=== PATIENT | male | born 1995 | race African-American/Black ===

== ENCOUNTER 2021-04-26 14:50 | Inpatient (IN) | payer MEDICAID ==
[~2021-04-26] VITALS: Ht 190.5 cm; Wt 77.1 kg
[2021-04-26 19:57] VITALS: BP 117/73
[2021-04-27] MEDS ORDERED: INFLUENZA VIRUS VACCINE QVS 2021-22 (6MO+)/PF 60 MCG/0.5 ML SYRINGE IM. ONE (00:45)
[2021-04-27 06:07] VITALS: BP 120/78
[2021-04-27 08:24] VITALS: BP 111/61
[2021-04-27] MEDS ORDERED: HALOPERIDOL LACTATE 5 MG/ML VIAL ONE (09:11)
[2021-04-27] MEDS ORDERED: DiphenhydrAMINE HCL 50 MG/ML VIAL ONE (09:11)
[2021-04-27] MEDS ORDERED: LORazepam 2 MG/ML VIAL IM ONE (09:15)
[2021-04-27] MEDS ORDERED: HALOPERIDOL LACTATE 5 MG/ML VIAL IM ONE (09:15)
[2021-04-27] MEDS ORDERED: DiphenhydrAMINE HCL 50 MG/ML VIAL IM ONE (09:15)
[2021-04-27] MEDS: LORazepam 1 MG TABLET PO PRN (18:08)
[2021-04-27] MEDS: HALOPERIDOL 5 MG TABLET PO PRN (18:08)
[2021-04-27] MEDS ORDERED: DOCUSATE SODIUM 100 MG CAPSULE PO PRN (22:00)
[2021-04-27] MEDS ORDERED: ALBUTEROL SULFATE HFA 90 MCG/PUFF 8 GM INHALER IH PRN (22:00)
[2021-04-27] MEDS ORDERED: PETROLATUM,WHITE 28 GM JELLY TP PRN (22:00)
[2021-04-27] MEDS ORDERED: IBUPROFEN 600 MG TABLET PO PRN (22:00)
[2021-04-27] MEDS ORDERED: OMEPRAZOLE 20 MG CAPSULE PO PRN (22:00)
[2021-04-27] MEDS ORDERED: MAG HYDROX/AL HYDROX/SIMETH ES 30 ML SUSPENSION UDCUP PO PRN (22:00)
[2021-04-27] MEDS ORDERED: MAGNESIUM HYDROXIDE SUSPENSION 30 ML UDCUP PO PRN (22:00)
[2021-04-27] MEDS ORDERED: BENZOCAINE/MENTHOL LOZENGE PO PRN (22:00)
[2021-04-27] MEDS ORDERED: ACETAMINOPHEN 325 MG TABLET PO PRN (22:00)
[2021-04-27] MEDS ORDERED: LOPERAMIDE HCL 2 MG CAPSULE PO PRN (22:00)
[2021-04-27] MEDS ORDERED: BACITRACIN 28 GM OINTMENT TP PRN (22:00)
[2021-04-27] MEDS ORDERED: CloNIDine HCL 0.1 MG TABLET PO PRN (22:00)
[2021-04-27] MEDS ORDERED: ONDANSETRON HCL 4 MG TABLET PO PRN (22:00)
[2021-04-28 07:12] VITALS: BP 109/63
[2021-04-28 08:04] LABS: BASOPHILS % (AUTO) 0.3 % (0.0-2.0); EOSINOPHILS % (AUTO) 0 % (1.0-6.0); HEMATOCRIT 43.7 % (41-53); HEMOGLOBIN 15.1 g/dL (13.5-17.5); LYMPHOCYTES # (AUTO) 1.6 K/uL (1.0-4.8); LYMPHOCYTES % (AUTO) 16.6 % (22.0-44.0); MEAN CORPUSCULAR HEMOGLOBIN 31.3 pg (26.0-34.0); MEAN CORPUSCULAR HGB CONC 34.6 G/dL (31.0-37.0); MEAN CORPUSCULAR VOLUME 90 fL (80-100); MONOCYTES # (AUTO) 0.7 K/uL (0.1-1.0); MONOCYTES % (AUTO) 6.6 % (2.0-9.0); NEUTROPHILS # (AUTO) 7.5 K/uL (1.8-7.7); NEUTROPHILS % (AUTO) 76.5 % (40.0-70.0); PLATELET COUNT (AUTO) 251 K/uL (150-450); RED BLOOD CELL COUNT(AUTO) 4.83 MIL/uL (4.50-5.90); RED CELL DISTRIBUTION WIDTH 13.3 % (11.5-14.5)
[2021-04-28 08:34] VITALS: BP 111/59
[2021-04-28] MEDS ORDERED: DiphenhydrAMINE HCL 50 MG/ML VIAL IM ONE ×2 (10:45→13:45)
[2021-04-28] MEDS ORDERED: LORazepam 2 MG/ML VIAL ONE (13:39)
[2021-04-28] MEDS ORDERED: HALOPERIDOL LACTATE 5 MG/ML VIAL ONE (13:40)
[2021-04-28] MEDS ORDERED: LORazepam 2 MG/ML VIAL IM ONE (13:45)
[2021-04-28] MEDS ORDERED: HALOPERIDOL LACTATE 5 MG/ML VIAL IM ONE (13:45)
[2021-04-28 16:30] VITALS: BP 112/62
[2021-04-28] MEDS: OLANZapine 7.5 MG TABLET PO SCH (20:35)
[2021-04-28] MEDS: ZOLPIDEM TARTRATE 10 MG TABLET PO PRN (20:35)
[2021-04-28] MEDS: LORazepam 1 MG TABLET PO PRN (20:35)
[2021-04-29 00:43] VITALS: BP 120/75
[2021-04-29] MEDS ORDERED: DiphenhydrAMINE HCL 50 MG/ML VIAL ONE (13:33)
[2021-04-29] MEDS ORDERED: LORazepam 2 MG/ML VIAL ONE (13:33)
[2021-04-29] MEDS ORDERED: HALOPERIDOL LACTATE 5 MG/ML VIAL ONE (13:34)
[2021-04-29] MEDS ORDERED: LORazepam 2 MG/ML VIAL IM ONE (13:35)
[2021-04-29] MEDS ORDERED: DiphenhydrAMINE HCL 50 MG/ML VIAL IM ONE (13:35)
[2021-04-29] MEDS ORDERED: HALOPERIDOL LACTATE 5 MG/ML VIAL IM ONE (13:35)
[2021-04-29] MEDS: HALOPERIDOL 5 MG TABLET PO PRN (16:10)
[2021-04-29] MEDS: LORazepam 1 MG TABLET PO PRN (16:10)
[2021-04-29 16:33] VITALS: BP 96/58
[2021-04-29 17:12] VITALS: BP 122/75
[2021-04-29] MEDS: OLANZapine 7.5 MG TABLET PO SCH (20:16)
[2021-04-30 06:08] VITALS: BP 115/74
[2021-04-30 16:11] VITALS: BP 113/70
[2021-04-30] MEDS: OLANZapine 7.5 MG TABLET PO SCH (20:15)
[2021-04-30] MEDS: LORazepam 1 MG TABLET PO PRN (20:15)
[2021-04-30] MEDS: ZOLPIDEM TARTRATE 10 MG TABLET PO PRN (20:15)
[2021-05-01 05:44] VITALS: BP 110/67
[2021-05-01] MEDS ORDERED: DiphenhydrAMINE HCL 50 MG/ML VIAL ONE (16:33)
[2021-05-01] MEDS ORDERED: HALOPERIDOL LACTATE 5 MG/ML VIAL ONE (16:33)
[2021-05-01] MEDS ORDERED: LORazepam 2 MG/ML VIAL ONE (16:33)
[2021-05-01] MEDS ORDERED: HALOPERIDOL LACTATE 5 MG/ML VIAL IM ONE (16:35)
[2021-05-01] MEDS ORDERED: DiphenhydrAMINE HCL 50 MG/ML VIAL IM ONE (16:35)
[2021-05-01] MEDS ORDERED: LORazepam 2 MG/ML VIAL IM ONE (16:35)
[2021-05-01] MEDS: OLANZapine 7.5 MG TABLET PO SCH (21:00)
[2021-05-02 01:13] VITALS: BP 108/77
[2021-05-02 12:01] LABS: GLUCOMETER DEV NAME(LOC) POC.BV
[2021-05-02 16:15] VITALS: BP 114/75
[2021-05-02] MEDS: HALOPERIDOL 5 MG TABLET PO PRN (17:31)
[2021-05-02] MEDS: LORazepam 1 MG TABLET PO PRN (17:31)
[2021-05-02] MEDS: ZOLPIDEM TARTRATE 10 MG TABLET PO PRN (20:32)
[2021-05-02] MEDS: OLANZapine 7.5 MG TABLET PO SCH (20:33)
[2021-05-03 08:29] VITALS: BP 145/79
[2021-05-03] MEDS ORDERED: LORazepam 2 MG/ML VIAL ONE (12:51)
[2021-05-03] MEDS ORDERED: HALOPERIDOL LACTATE 5 MG/ML VIAL ONE (12:51)
[2021-05-03] MEDS ORDERED: DiphenhydrAMINE HCL 50 MG/ML VIAL ONE (12:52)
[2021-05-03] MEDS ORDERED: HALOPERIDOL LACTATE 5 MG/ML VIAL IM ONE (13:15)
[2021-05-03] MEDS ORDERED: DiphenhydrAMINE HCL 50 MG/ML VIAL IM ONE (13:15)
[2021-05-03] MEDS ORDERED: LORazepam 2 MG/ML VIAL IM ONE (13:15)
[2021-05-03] MEDS: LORazepam 1 MG TABLET PO PRN (17:02)
[2021-05-03] MEDS: HALOPERIDOL 5 MG TABLET PO PRN (17:02)
[2021-05-03] MEDS: DIVALPROEX SODIUM 500 MG DR TABLET PO SCH (17:02)
[2021-05-03] MEDS ORDERED: OLANZapine 10 MG TABLET PO SCH (21:00)
[2021-05-04] MEDS: DIVALPROEX SODIUM 500 MG DR TABLET PO SCH (08:37)
== END 2021-05-04 13:30 | disposition left against medical advice (07) | DRG 750 ==
LOC: B3A 19:40
PROVIDERS: ADMIT Psychiatry & Neurology Psychiatry; ATTEND Psychiatry & Neurology Psychiatry
DX: F20.9 Schizophrenia, unspecified (principal); F32.A Depression, unspecified; F41.9 Anxiety disorder, unspecified; Z20.822 Contact with and (suspected) exposure to COVID-19; G47.00 Insomnia, unspecified; K59.00 Constipation, unspecified; Z53.29 Procedure and treatment not carried out because of patient's decision for other reasons; Z72.0 Tobacco use
CPT/HCPCS: 80307; 85025; 87081; J1200; J1630; J2060

== ENCOUNTER 2021-06-29 03:36 | Emergency (ER) | payer MEDICAID, OTHER ==
[~2021-06-29] VITALS: Ht 190.5 cm; Wt 81.8 kg
[2021-06-29 04:00] LABS: BASOPHILS % (AUTO) 0.4 % (0.0-2.0); EOSINOPHILS % (AUTO) 0.3 % (1.0-6.0); HEMOGLOBIN 15.6 g/dL (13.5-17.5); LYMPHOCYTES # (AUTO) 1.6 K/uL (1.0-4.8); LYMPHOCYTES % (AUTO) 18.5 % (22.0-44.0); MEAN CORPUSCULAR HEMOGLOBIN 31.1 pg (26.0-34.0); MEAN CORPUSCULAR HGB CONC 33.8 G/dL (31.0-37.0); MEAN CORPUSCULAR VOLUME 92 fL (80-100); MONOCYTES # (AUTO) 0.4 K/uL (0.1-1.0); NEUTROPHILS # (AUTO) 6.5 K/uL (1.8-7.7); NEUTROPHILS % (AUTO) 75.8 % (40.0-70.0); PLATELET COUNT (AUTO) 320 K/uL (150-450); RED BLOOD CELL COUNT(AUTO) 5.01 MIL/uL (4.50-5.90); RED CELL DISTRIBUTION WIDTH 13.8 % (11.5-14.5)
[2021-06-29 04:49] LABS: ANION GAP 12 mmol/L (8-16); CALCIUM, TOTAL 9.8 mg/dL (8.8-10.5); CARBON DIOXIDE 25 mmol/L (22-29); CHLORIDE 105 mmol/L (98-107); CREATININE 0.87 mg/dL (0.60-1.30); GLOMERULAR FILTR. RATE CALC > 60 mL/min (>60); GLUCOSE,RANDOM 186 mg/dL (70-110); POTASSIUM 3.9 mmol/L (3.5-5.1); UREA NITROGEN, BLOOD 12 mg/dL (7-18)
[2021-06-29 04:54] LABS: ALANINE AMINOTRANSFERASE 44 U/L (12-78); ALBUMIN 4.2 g/dL (3.4-5.0); ALKALINE PHOSPHATASE 82 U/L (46-116); ASPARTATE AMINOTRANSFERASE 25 U/L (15-37); BILIRUBIN,TOTAL 0.3 mg/dL (0.1-1.0); TOTAL PROTEIN, SERUM 8.7 g/dL (6.4-8.2)
[2021-06-29 04:59] LABS: SODIUM SERUM 142 mmol/L (136-145)
[2021-06-29] MEDS ORDERED: LORazepam 2 MG TABLET PO PRN (05:30)
[2021-06-29] MEDS ORDERED: ZOLPIDEM TARTRATE 10 MG TABLET PO PRN (05:30)
[2021-06-29] MEDS ORDERED: HALOPERIDOL 5 MG TABLET PO PRN (05:30)
[2021-06-29 07:01] VITALS: BP 154/88
[2021-06-29 07:34] LABS: COVID AG,FIA SOURCE NASOPHARYNGEAL
[2021-06-29 07:41] LABS: APPEARANCE,URINE CLEAR (CLEAR); BILIRUBIN,URINE NEGATIVE (NEGATIVE); GLUCOSE, URINE (UA) 150-200 mg/dL (NEGATIVE); KETONES,URINE NEGATIVE (NEGATIVE); LEUKOCYTE ESTERASE ,URINE NEGATIVE (NEGATIVE); NITRATE,URINE NEGATIVE (NEGATIVE); OCCULT BLOOD,URINE NEGATIVE (NEGATIVE); PH,URINE 6.5 (5.0-8.0); PROTEIN,URINE 30-70 mg/dL (NEGATIVE); SPECIFIC GRAVITIY, URINE 1.035 (1.003-1.030); UROBILINOGEN,URINE <=1.0 mg/dL (<=1.0)
[2021-06-29 07:46] LABS: AMPHET/METH SCREEN,URINE NEGATIVE (NEGATIVE); BARBITURATE SCREEN, URINE NEGATIVE (NEGATIVE); BENZODIAZEPINES SCREEN,URINE NEGATIVE (NEGATIVE); CANNABINOID SCREEN,URINE NEGATIVE (NEGATIVE); COCAINE SCREEN,URINE NEGATIVE (NEGATIVE); METHADONE SCREEN, URINE NEGATIVE (NEGATIVE); OPIATE SCREEN,URINE NEGATIVE (NEGATIVE)
[2021-06-29 07:50] LABS: PHENCYCLIDINE SCREEN,URINE NEGATIVE (NEGATIVE)
[2021-06-29 08:21] LABS: BACTERIA,URINE None Seen /HPF (None Seen); RBC,URINE None Seen /HPF (0-2); SQUAMOUS EPITHELIAL CELL,UR None Seen /LPF (None Seen); WBC,URINE None Seen /HPF (0-5)
== END 2021-06-29 09:01 | disposition left against medical advice (07) ==
LOC: EMS 03:42 → B3A 07:44 → UNDOADMIN 07:44 → EMS 09:01
DX: F20.9 Schizophrenia, unspecified (principal); F12.90 Cannabis use, unspecified, uncomplicated; F15.90 Other stimulant use, unspecified, uncomplicated; F17.210 Nicotine dependence, cigarettes, uncomplicated; F32.9 Major depressive disorder, single episode, unspecified; Z20.822 Contact with and (suspected) exposure to COVID-19
CPT/HCPCS: 36415; 80053; 80307; 81001; 85025; 87426; 99284; G0480

== ENCOUNTER 2023-11-05 11:32 | Emergency (ER) | payer MEDICAID, OTHER ==
[~2023-11-05] VITALS: Ht 188 cm; Wt 102.3 kg
[2023-11-05 11:44] VITALS: BP 124/98; PULSE 116; RESP 18; TEMP 98.6
[2023-11-05 13:18] LABS: BASOPHILS % (AUTO) 0.5 % (0.0-2.0); EOSINOPHILS % (AUTO) 1.1 % (1.0-6.0); HEMATOCRIT 43.2 % (41-53); HEMOGLOBIN 14.4 g/dL (13.5-17.5); LYMPHOCYTES % (AUTO) 20.8 % (22.0-44.0); MEAN CORPUSCULAR HEMOGLOBIN 30.7 pg (26.0-34.0); MEAN CORPUSCULAR HGB CONC 33.3 G/dL (31.0-37.0); MEAN CORPUSCULAR VOLUME 92 fL (80-100); MONOCYTES # (AUTO) 0.5 K/uL (0.1-1.0); MONOCYTES % (AUTO) 5.4 % (2.0-9.0); NEUTROPHILS # (AUTO) 6.9 K/uL (1.8-7.7); NEUTROPHILS % (AUTO) 72.2 % (40.0-70.0); PLATELET COUNT (AUTO) 281 K/uL (150-450); RED BLOOD CELL COUNT(AUTO) 4.68 MIL/uL (4.50-5.90); RED CELL DISTRIBUTION WIDTH 13.9 % (11.5-14.5); WHITE BLOOD COUNT (AUTO) 9.5 K/uL (4.5-11.0)
[2023-11-05 13:27] LABS: ANION GAP 9 mmol/L (8-16); CALCIUM, TOTAL 9.2 mg/dL (8.8-10.5); CARBON DIOXIDE 28 mmol/L (22-29); CHLORIDE 104 mmol/L (98-107); CREATININE 1.22 mg/dL (0.60-1.30); GLOMERULAR FILTR. RATE CALC > 60 mL/min (>60); GLUCOSE,RANDOM 93 mg/dL (70-110); POTASSIUM 3.7 mmol/L (3.5-5.1); SODIUM SERUM 141 mmol/L (136-145); UREA NITROGEN, BLOOD 15 mg/dL (7-18)
[2023-11-05 13:37] LABS: TROPONIN I-HIGH SENSITIVITY Less Than 4 ng/L (<76)
[2023-11-05 13:52] LABS: ALANINE AMINOTRANSFERASE 46 U/L (12-78); ALBUMIN 3.6 g/dL (3.4-5.0); ALKALINE PHOSPHATASE 107 U/L (46-116); ASPARTATE AMINOTRANSFERASE 26 U/L (15-37); BILIRUBIN,TOTAL 0.4 mg/dL (0.1-1.0); CREATINE KINASE, TOTAL ONLY 156 U/L (39-308); TOTAL PROTEIN, SERUM 7.8 g/dL (6.4-8.2)
[2023-11-05] MEDS ORDERED: IBUP-1492 PO (14:33)
[2023-11-05] MEDS ORDERED: AMOX500C2 PO (14:33)
[2023-11-05 14:37] LABS: APPEARANCE,URINE CLEAR (CLEAR); BILIRUBIN,URINE NEGATIVE (NEGATIVE); COLOR,URINE YELLOW (YELLOW); GLUCOSE, URINE (UA) NEGATIVE (NEGATIVE); KETONES,URINE NEGATIVE (NEGATIVE); LEUKOCYTE ESTERASE ,URINE NEGATIVE (NEGATIVE); NITRATE,URINE NEGATIVE (NEGATIVE); OCCULT BLOOD,URINE NEGATIVE (NEGATIVE); PROTEIN,URINE 30-70 mg/dL (NEGATIVE); SPECIFIC GRAVITIY, URINE 1.034 (1.003-1.030); UROBILINOGEN,URINE <=1.0 mg/dL (<=1.0)
== END 2023-11-05 15:41 | disposition home or self-care (01) ==
LOC: EMS 11:32
DX: R68.84 Jaw pain (principal); R07.89 Other chest pain; F32.A Depression, unspecified; F20.9 Schizophrenia, unspecified; F17.210 Nicotine dependence, cigarettes, uncomplicated; F12.90 Cannabis use, unspecified, uncomplicated; F15.90 Other stimulant use, unspecified, uncomplicated
CPT/HCPCS: 70100; 71045; 80053; 81003; 82550; 84484; 85025; 93005; 99285; 36415-L1; 36415-TC